=== PATIENT | female | born 1985 | race Caucasian/White ===

== ENCOUNTER 2016-09-16 19:55 | Emergency (ER) | payer OTHER ==
[~2016-09-16] VITALS: Ht 165.1 cm; Wt 92.1 kg
[2016-09-16] MEDS ORDERED: BREO1INH3 INH (20:23)
[2016-09-16] MEDS ORDERED: SING10TA32 PO (20:23)
[2016-09-16] MEDS ORDERED: FERR32TA PO (20:23)
[2016-09-16] MEDS ORDERED: EPIP0.3I2 SQ (20:23)
[2016-09-16] MEDS ORDERED: FLUT1SPR2 (20:23)
[2016-09-16] MEDS ORDERED: ORTHO PO (20:23)
[2016-09-16] MEDS ORDERED: ALBU83IN INH (20:23)
[2016-09-16] MEDS ORDERED: PANT40TA2 PO (20:23)
[2016-09-16] MEDS ORDERED: BENZ100C5 PO (20:23)
[2016-09-16] MEDS ORDERED: CLAR10CA3 PO (20:23)
[2016-09-16] MEDS ORDERED: XOPEAER INH (20:23)
[2016-09-16] MEDS ORDERED: PRED20TA PO (20:23)
[2016-09-16] MEDS ORDERED: ALBUTEROL SULFATE 2.5 MG/0.5 ML INH NEB SOLN INH ONE (20:45)
[2016-09-16] MEDS ORDERED: NS 1,000 ML IV ONE (20:45)
[2016-09-16] MEDS ORDERED: IPRATROPIUM 0.5MG/ALBUTEROL 2.5MG INH SOL UD 3ML (DUONEB)(J7620) NEB ONE (20:45)
[2016-09-16] MEDS ORDERED: MAG SULF 1GM/100ML (MAG RUN) 1 GM in APPROPRIATE DILUENT 1 EA IV ONE (21:00)
[2016-09-16] MEDS: MAG SULF 1GM/100ML (MAG RUN) 1 GM in APPROPRIATE DILUENT 1 EA IV SCH ×2 (21:14→22:24)
[2016-09-16 21:17] LABS: BASO % 0.1 % (0.0-1.0); EOS # 0.2 K/mm3 (0.0-0.50); EOS % 1.3 % (0.0-3.0); LARGE UNSTAINED CELL # 0.1 K/mm3 (0.0-0.4); LARGE UNSTAINED CELL % 0.5 % (0.0-4.0); LYMPH # 1.6 K/mm3 (1.5-4.5); LYMPH % 11.7 % (24.0-44.0); MEAN CORPUSCULAR HEMOGLOBIN 28.9 pg (27.0-33.0); MEAN CORPUSCULAR HGB CONC 33.7 g/dl (32.0-36.5); MEAN CORPUSCULAR VOLUME 85.6 fl (80.0-96.0); MONO # 0.5 K/mm3 (0.0-0.8); MONO % 3.7 % (0.0-5.0); NEUTROPHILS # 10.6 K/mm3 (1.8-7.7); NEUTROPHILS % 82.8 % (36.0-66.0); PLATELET COUNT, AUTOMATED 406 k/mm3 (150-450); RED CELL DISTRIBUTION WIDTH 12.9 % (11.5-14.5); WHITE BLOOD COUNT 12.8 K/mm3 (4.0-10.0)
[2016-09-16 21:34] LABS: ANION GAP 9 MEQ/L (8-16); BLOOD UREA NITROGEN 12 MG/DL (7-18); CALCIUM LEVEL 9.5 MG/DL (8.5-10.1); CARBON DIOXIDE LEVEL 27 MEQ/L (21-32); CHLORIDE LEVEL 104 MEQ/L (98-107); CREATININE FOR GFR 0.91 MG/DL (0.55-1.02); GLOMERULAR FILTRATION RATE > 60.0 (>60); GLUCOSE, FASTING 119 MG/DL (70-105); SODIUM LEVEL 140 MEQ/L (136-145)
[2016-09-16 21:37] LABS: ABG BASE EXCESS 1.2 (-2.0-2.0); ABG HCO3 21.1 MEQ/L (22.0-26.0); ABG PARTIAL PRESSURE CO2 22.7 mmHg (35.0-45.0); ABG PARTIAL PRESSURE O2 147.9 mmHg (75.0-100.0); ABG STANDARD HCO3 25.6 MEQ/L (22.0-26.0); ABG TOTAL CO2 21.8 MEQ/L (22.0-29.0); ABG pH (ARTERIAL) 7.587 UNITS (7.350-7.450)
[2016-09-17] MEDS ORDERED: ALBUTEROL SULFATE 2.5 MG/0.5 ML INH NEB SOLN INH ONE (00:15)
[2016-09-17 00:45] VITALS: BP 140/88
--- NOTE | 2016-09-17 07:51 | REP ---
Clinical: Dyspnea. Cough . Comparison: None . Technique: PA and lateral. Findings: The mediastinum and cardiac silhouette are normal. The lung peres are clear and without acute consolidation, effusion, or pneumothorax. The skeletal structures are intact and normal. Impression: 1. No acute cardiopulmonary process. Signed by Jeffery Magana MD 09/17/2016 07:43 A
--- NOTE | 2016-09-18 07:14 | ECGEPIP ---
Stationary ECG Study [facility] - ED Test Date: 2016-09-16 Pat Name: ADRIA RAI Department: Room: - Gender: F Movie Projectionist: ca : 1985 Requested By: BETTY JASMINE Order Number: [id number] Reading MD: Jose Enrique Bains Measurements Intervals Gipsy Rate: 107 P: 55 CA: 141 QRS: 22 QRSD: 89 T: 10 QT: 317 QTc: 424 Interpretive Statements SINUS TACHYCARDIA INC. RBBB NO PRIORS Electronically Signed On 09-18-2016 7:14:38 EDT by Jose Enrique Bains
== END 2016-09-17 00:53 | disposition home or self-care (01) ==
LOC: M ED 20:47
DX: J45.901 Unspecified asthma with (acute) exacerbation (principal); F41.9 Anxiety disorder, unspecified; K58.9 Irritable bowel syndrome, unspecified; Z79.899 Other long term (current) drug therapy; Z88.0 Allergy status to penicillin; Z88.6 Allergy status to analgesic agent; Z88.8 Allergy status to other drugs, medicaments and biological substances; Z91.013 Allergy to seafood; Z91.012 Allergy to eggs
CPT/HCPCS: 36600; 71020; 80048; 82803; 85025; 85379; 93005; 94640; 96365; 96366; 99284; J3475

== ENCOUNTER 2016-09-20 09:59 | Emergency (ER) | payer OTHER ==
[~2016-09-20] VITALS: Ht 165.1 cm; Wt 92.1 kg
[~2016-09-20 09:59] MED LIST: ALBU83IN INH; BENZ100C5 PO; BREO1INH3 INH; CLAR10CA3 PO; EPIP0.3I2 SQ; FERR32TA PO; FLUT1SPR2; ORTHO PO; PANT40TA2 PO; PRED20TA PO; SING10TA32 PO; XOPEAER INH
--- NOTE | 2016-09-20 11:34 | REP ---
Chest two views HISTORY: Pneumonia Comparison: 09/16/2016 The lungs are clear. The heart is normal in size. The pulmonary vasculature is normal in appearance. The bony structure is intact. IMPRESSION: No acute disease. Signed by Sherif Aguilar MD 09/20/2016 11:25 A
[2016-09-20] MEDS ORDERED: ZITHTAB PO (12:12)
[2016-09-20 12:38] VITALS: BP 135/93
== END 2016-09-20 12:44 | disposition home or self-care (01) ==
LOC: M ED 11:01
DX: J20.9 Acute bronchitis, unspecified (principal); Z79.899 Other long term (current) drug therapy; Z79.51 Long term (current) use of inhaled steroids; Z88.0 Allergy status to penicillin; Z88.1 Allergy status to other antibiotic agents; Z88.2 Allergy status to sulfonamides; Z88.8 Allergy status to other drugs, medicaments and biological substances; Z91.012 Allergy to eggs; Z91.013 Allergy to seafood

== ENCOUNTER → 2016-10-09 | Outpatient (REF) | payer OTHER ==
[~2016-10-09] MED LIST changes: +ZITHTAB PO
== END ==
LOC: M LAB REF 17:15
PROVIDERS: ATTEND Specialist
DX: Z12.4 Encounter for screening for malignant neoplasm of cervix (principal)

== ENCOUNTER → 2016-10-18 | Outpatient (REF) | payer OTHER ==
[~2016-10-18] MED LIST changes: +LEVAINH INH; -XOPEAER INH
[2016-10-19 15:34] LABS: PERCENT SATURATION 14.5 % (13.2-37.4)
== END ==
LOC: M LAB REF 08:00
PROVIDERS: ATTEND Internal Medicine
DX: D50.9 Iron deficiency anemia, unspecified (principal)

== ENCOUNTER → 2017-01-25 | Outpatient (REF) | payer OTHER | LOC: M LAB REF 12:11 | PROVIDERS: ATTEND Internal Medicine | DX: H04.129 Dry eye syndrome of unspecified lacrimal gland (principal); R68.2 Dry mouth, unspecified ==

== ENCOUNTER → 2017-03-11 | Outpatient (CLI) | payer OTHER ==
--- NOTE | 2017-03-11 13:32 | REP ---
MRI STUDY OF THE BRAIN WITHOUT CONTRAST, TO INCLUDE PITUITARY: HISTORY: Rathke's cleft cyst. Comparison study is from April 20, 2016. TECHNIQUE: Axial, coronal and sagittal imaging planes utilized. T1 and T2-weighted sequences include spin-echo, fast spin echo, FLAIR, and diffusion weighted sequences. Thin section sagittal T2-weighted images are included through the pituitary. MRI FINDINGS: The previously noted left para midline sella turcica cystic structure is again seen. This measures 11 mm in greatest transverse dimension and is felt to be unchanged from the comparison MRI study April 20, 2016. There is no evidence of compression of the optic chiasm. Pituitary gland is 11 mm in craniocaudal span. No other pituitary lesion is seen. The exam is otherwise unremarkable. No mass, infarct, extra-axial fluid collection or midline shift is seen. Craniocervical junction is unremarkable. 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 This is unchanged from comparison study April 10, 2016. Signed by Taurus Cuenca MD 03/11/2017 02:33 P
== END ==
LOC: M PLARAD 09:17
PROVIDERS: ATTEND Neurological Surgery
DX: E23.6 Other disorders of pituitary gland (principal)

== ENCOUNTER → 2017-05-21 | Outpatient (REF) | payer OTHER ==
[2017-05-21 18:32] LABS: INFLUENZA A AMPLIFICATION NEGATIVE (NEGATIVE); INFLUENZA B AMPLIFICATION NEGATIVE (NEGATIVE)
== END ==
LOC: M LAB REF 17:06
DX: J06.9 Acute upper respiratory infection, unspecified (principal)